=== PATIENT | female | born 1985 | race Caucasian/White ===

== ENCOUNTER → 2016-08-02 | Outpatient (REF) | payer BC, SELFPAY ==
[~2016-08-02] MED LIST: ACET30TAB PO; IBUP600T26 PO; ONDA1TAB15 PO
== END ==
LOC: M SFHCLERA 15:22
PROVIDERS: ATTEND Nurse Practitioner Family
DX: R19.7 Diarrhea, unspecified (principal)

== ENCOUNTER → 2016-08-19 | Outpatient (REF) | payer OTHER ==
[2016-08-19 20:28] LABS: MEAN CORPUSCULAR HEMOGLOBIN 30.9 pg (27.0-33.0); MEAN CORPUSCULAR HGB CONC 34.4 g/dl (32.0-36.5); MEAN CORPUSCULAR VOLUME 89.8 fl (80.0-96.0); RED CELL DISTRIBUTION WIDTH 12.4 % (11.5-14.5); WHITE BLOOD COUNT 10.1 K/mm3 (4.0-10.0)
[2016-08-19 20:43] LABS: ALBUMIN 3.9 GM/DL (3.2-5.2); ALKALINE PHOSPHATASE 44 U/L (45-117); ALT/SGPT 19 U/L (12-78); ANION GAP 8 MEQ/L (8-16); AST/SGOT 9 U/L (15-37); BILIRUBIN,TOTAL 0.3 MG/DL (0.2-1.0); BLOOD UREA NITROGEN 14 MG/DL (7-18); CALCIUM LEVEL 8.7 MG/DL (8.5-10.1); CARBON DIOXIDE LEVEL 27 MEQ/L (21-32); CHLORIDE LEVEL 102 MEQ/L (98-107); CREATININE FOR GFR 0.61 MG/DL (0.55-1.02); GLOMERULAR FILTRATION RATE > 60.0 (>60); GLUCOSE, FASTING 85 MG/DL (70-105); POTASSIUM SERUM 4.1 MEQ/L (3.5-5.1); SODIUM LEVEL 137 MEQ/L (136-145); TOTAL PROTEIN 6.9 GM/DL (6.4-8.2)
== END ==
LOC: M SFHCLERA 17:53
PROVIDERS: ATTEND Family Medicine
DX: A09 Infectious gastroenteritis and colitis, unspecified (principal)

== ENCOUNTER → 2016-10-07 | Outpatient (CLI) | payer OTHER ==
[~2016-10-07] MED LIST changes: +IBUP-1022 PO; -IBUP600T26 PO; +META0.52 PO; -ONDA1TAB15 PO; +ONDA4TAB5 PO; +PREN200C PO
[2016-10-09 00:08] LABS: ENDOMYSIAL ABY IgA Negative (Negative); TISSUE TRANSGLUTAMINASE IgG <2 U/mL (0-5)
== END ==
LOC: M LAB 10:37
PROVIDERS: ATTEND Internal Medicine Gastroenterology
DX: R19.7 Diarrhea, unspecified (principal)

== ENCOUNTER → 2016-10-08 | Outpatient (REF) | payer OTHER | LOC: M LAB REF 16:25 | PROVIDERS: ATTEND Internal Medicine Gastroenterology | DX: R19.7 Diarrhea, unspecified (principal) ==

== ENCOUNTER → 2016-10-11 | Outpatient (REF) | payer OTHER | LOC: M SFHCWAGY 10:20 | PROVIDERS: ATTEND Nurse Practitioner Women's Health | DX: Z12.4 Encounter for screening for malignant neoplasm of cervix (principal) ==

== ENCOUNTER 2016-11-05 13:07 | Emergency (ER) | payer OTHER ==
[~2016-11-05] VITALS: Ht 149.9 cm; Wt 53.6 kg
[~2016-11-05 13:07] MED LIST changes: -META0.52 PO; -PREN200C PO
[2016-11-05] MEDS ORDERED: PREN200C PO (13:31)
[2016-11-05] MEDS ORDERED: META0.52 PO (13:31)
[2016-11-05] MEDS ORDERED: NS 1,000 ML IV ONE (15:30)
[2016-11-05 16:05] LABS: BASO % 0.5 % (0.0-1.0); EOS # 0.2 K/mm3 (0.0-0.50); EOS % 1.8 % (0.0-3.0); LARGE UNSTAINED CELL # 0.1 K/mm3 (0.0-0.4); LARGE UNSTAINED CELL % 1.3 % (0.0-4.0); LYMPH # 2.2 K/mm3 (1.5-6.5); MEAN CORPUSCULAR HEMOGLOBIN 30.5 pg (27.0-33.0); MEAN CORPUSCULAR HGB CONC 34.8 g/dl (32.0-36.5); MEAN CORPUSCULAR VOLUME 87.7 fl (80.0-96.0); MONO # 0.4 K/mm3 (0.0-0.8); MONO % 4.3 % (0.0-5.0); NEUTROPHILS # 6.8 K/mm3 (1.8-7.7); NEUTROPHILS % 70.3 % (36.0-66.0); PLATELET COUNT, AUTOMATED 298 k/mm3 (150-450); RED CELL DISTRIBUTION WIDTH 12.4 % (11.5-14.5); WHITE BLOOD COUNT 9.7 K/mm3 (4.0-10.0)
[2016-11-05 16:49] LABS: ALBUMIN/GLOBULIN RATIO 1.14 (1.00-1.93); ALKALINE PHOSPHATASE 48 U/L (45-117); ALT/SGPT 16 U/L (12-78); ANION GAP 8 MEQ/L (8-16); AST/SGOT 8 U/L (15-37); BILIRUBIN,TOTAL 0.4 MG/DL (0.2-1.0); BLOOD UREA NITROGEN 9 MG/DL (7-18); CALCIUM LEVEL 9.1 MG/DL (8.5-10.1); CARBON DIOXIDE LEVEL 25 MEQ/L (21-32); CHLORIDE LEVEL 107 MEQ/L (98-107); CREATININE FOR GFR 0.64 MG/DL (0.55-1.02); GLOMERULAR FILTRATION RATE > 60.0 (>60); GLUCOSE, FASTING 94 MG/DL (70-105); HCG, SERUM QUANTITATIVE 4902 MIU/ML; SODIUM LEVEL 140 MEQ/L (136-145); TOTAL PROTEIN 7.5 GM/DL (6.4-8.2)
[2016-11-05] MEDS ORDERED: RHOGAM 300 MCG (1500 IU) INJ (J2790) IM SCH (18:00)
--- NOTE | 2016-11-05 19:01 | REP ---
1ST TRIMESTER ULTRASOUND: Real-time sonographic evaluation of the pelvis is performed utilizing transabdominal and endovaginal technique. The uterus measures 8.7 x 4.4 x 5.7 cm. There appears to be an intrauterine gestational sac present, this appear to contain a yolk sac. The mean sac diameter is 5 mm. This would correspond to an estimated gestational age of 5 weeks 2 days. No definite pole is seen. The right ovary measures 4.7 x 2.7 x 3.3 cm. Two small cystic structures are seen in the right ovary 2.2 x 2.1 x 1.6 cm and 1.6 x 2.2 x 1.7 cm. Left ovary measures 2.3 x 1.5 x 1.6 cm. A small internal cystic structure measures 1.4 x 1.2 x 0.9 cm. There is blood flow seen in each ovary with duplex Doppler evaluation, with no torsion, RI of each ovary is 0.6. There is no other evidence of adnexal mass or free fluid. IMPRESSION: There is a somewhat septate appearance to the uterus with an appearing gestational sac seen in the right horn of the uterus. This appears to contain a probable yolk sac but no pole. Estimated gestational age would be 5 weeks 2 days. This may represent a viable early intrauterine . Recommend followup ultrasound in 10-14 days to document viability. There are small cystic structures in each ovary without torsion. No free fluid. Signed by Abram Willis MD 11/08/2016 09:01 A
[2016-11-05 20:31] VITALS: BP 126/74
== END 2016-11-05 20:52 | disposition home or self-care (01) ==
LOC: M ED 13:07
DX: O20.9 Hemorrhage in early pregnancy, unspecified (principal); Z3A.01 Less than 8 weeks gestation of pregnancy
CPT/HCPCS: 76801; 76817; 80053; 81001; 84702; 85025; 86850; 86900; 86901; 87086; 87210; 87491; 87591; 90471; 93976; 99284; J2790

== ENCOUNTER → 2016-11-08 | Outpatient (CLI) | payer OTHER ==
[~2016-11-08] MED LIST changes: +META0.52 PO; +PREN200C PO
== END ==
LOC: M LAB 11:59
PROVIDERS: ATTEND Obstetrics & Gynecology
DX: O20.0 Threatened abortion (principal)

== ENCOUNTER → 2016-12-15 | Outpatient (CLI) | payer OTHER ==
[2016-12-15 20:38] LABS: BASO % 0.4 % (0.0-1.0); EOS # 0.2 10^3/uL (0.0-0.50); EOS % 1.5 % (0.0-3.0); IMMATURE GRANULOCYTE % 0.4 % (0-0); LYMPH # 3.3 10^3/uL (1.5-6.5); LYMPH % 31.1 % (24.0-44.0); MEAN CORPUSCULAR HEMOGLOBIN 30.6 pg (27.0-33.0); MEAN CORPUSCULAR HGB CONC 34.6 g/dl (32.0-36.5); MEAN CORPUSCULAR VOLUME 88.4 fl (80.0-96.0); MONO # 0.8 10^3/uL (0.0-0.8); MONO % 7.3 % (0.0-5.0); NEUTROPHILS # 6.3 10^3/uL (1.8-7.7); NEUTROPHILS % 59.3 % (36.0-66.0); PLATELET COUNT, AUTOMATED 316 10^3/uL (150-450); RED CELL DISTRIBUTION WIDTH 12.6 % (11.5-14.5)
[2016-12-15 21:11] LABS: ADD MORPHOLOGY? NO
[2016-12-16 10:24] LABS: WHITE BLOOD COUNT 10.6 10^3/uL (4.0-10.0)
[2016-12-17 09:52] LABS: HBsAg Prenatal NEGATIVE (NEGATIVE)
== END ==
LOC: M LRY 16:11
PROVIDERS: ATTEND Advanced Practice Midwife
DX: Z34.81 Encounter for supervision of other normal pregnancy, first trimester (principal)

== ENCOUNTER → 2017-02-14 | Outpatient (CLI) | payer OTHER ==
--- NOTE | 2017-02-14 17:45 | REP ---
Obstetric sonography: History: Supervision of , for anatomy. Findings: Scanning through the gravid uterus demonstrates a viable single intrauterine gestation in a cephalic lie. motion is observed and heart rate is recorded at 141 beats per minute. A right lateral grade 0 placenta is seen without evidence of previa or abruption. Amniotic fluid is subjectively normal. Closed cervical length is 3.9 cm. No extrauterine abnormalities observed. No anomaly is seen. The following anatomic structures are identified and felt to be sonographically unremarkable: cranium, choroid plexus, cavum, cerebellum and posterior fossa, face and profile, lungs, four-chamber heart with left and right ventricular outflow tract views, diaphragm, left-sided stomach, abdominal wall cord insertion, three-vessel umbilical cord, kidneys and bladder, spine, upper and lower extremities. Biometry chart: BPD 4.7 cm = 20 weeks 0 days HC 16.6 cm = 19 weeks 2 days AC 13.9 cm = 19 weeks 2 days FL 2.9 cm = 18 weeks 6 days HL 3.0 cm = 20 weeks 0 days HC/AC ratio normal 1.2. Cephalic index normal 0.79. Estimated weight 277 grams 0 pounds 9 ounces, 28th percentile for 19 weeks 5 days. Impression: Viable single intrauterine gestation at 19 weeks 4 days by today's composite sonographic criteria. Expected gestational age estimate 19 weeks 5 days. LOUANN by prior sonography July 06, 2017. No anomaly is seen. Signed by Neo Cruz MD 02/14/2017 08:30 P
== END ==
LOC: M RAD 15:31
PROVIDERS: ATTEND Advanced Practice Midwife
DX: Z36.2 Encounter for other antenatal screening follow-up (principal)

== ENCOUNTER → 2017-04-07 | Outpatient (CLI) | payer OTHER ==
[2017-04-07 18:54] LABS: BASO % 0.3 % (0.0-1.0); EOS # 0.3 10^3/uL (0.0-0.50); HEMATOCRIT 34.2 % (36.0-47.0); HEMOGLOBIN 11.7 g/dl (12.0-16.0); IMMATURE GRANULOCYTE % 0.4 % (0-0); LYMPH # 2.4 10^3/uL (1.5-6.5); MEAN CORPUSCULAR HEMOGLOBIN 30.2 pg (27.0-33.0); MEAN CORPUSCULAR HGB CONC 34.2 g/dl (32.0-36.5); MEAN CORPUSCULAR VOLUME 88.4 fl (80.0-96.0); MONO # 0.6 10^3/uL (0.0-0.8); MONO % 5.8 % (0.0-5.0); NEUTROPHILS # 6.7 10^3/uL (1.8-7.7); NEUTROPHILS % 66.5 % (36.0-66.0); PLATELET COUNT, AUTOMATED 308 10^3/uL (150-450); RED BLOOD COUNT 3.87 10^6/uL (4.00-5.40); RED CELL DISTRIBUTION WIDTH 12.7 % (11.5-14.5); WHITE BLOOD COUNT 10.1 10^3/uL (4.0-10.0)
[2017-04-07 19:16] LABS: GLUCOSE CHALLENGE TEST 1 HOUR 172 MG/DL (LESS THAN 140)
[2017-04-08 09:10] LABS: TYPE AND SCREEN 1 1
== END ==
LOC: M LRY 15:31
DX: Z34.83 Encounter for supervision of other normal pregnancy, third trimester (principal); Z36.89 Encounter for other specified antenatal screening
CPT/HCPCS: 82950

== ENCOUNTER → 2017-04-14 | Outpatient (CLI) | payer OTHER ==
[2017-04-14 09:18] LABS: GLUCOSE, FASTING 84 MG/DL (LESS THAN 95)
[2017-04-14 10:09] LABS: 1 HR GLUCOSE 161 MG/DL (LESS THAN 180)
[2017-04-14 11:11] LABS: 2 HR GLUCOSE 138 MG/DL (LESS THAN 155)
[2017-04-14 12:28] LABS: 3 HR GLUCOSE 95 MG/DL (LESS THAN 140)
== END ==
LOC: M LAB 08:09
DX: Z34.83 Encounter for supervision of other normal pregnancy, third trimester (principal); Z3A.00 Weeks of gestation of pregnancy not specified
CPT/HCPCS: 82951

== ENCOUNTER 2017-05-04 04:27 | Outpatient (CLI) | payer OTHER ==
[2017-05-04] MEDS ORDERED: CALCIUM GLUCONATE 1,000 MG in D5W MINI-BAG PLUS 100 ML IV (05:45)
[2017-05-04 06:02] LABS: HEMATOCRIT 32.2 % (36.0-47.0); HEMOGLOBIN 11.3 g/dl (12.0-16.0); MEAN CORPUSCULAR HEMOGLOBIN 30.7 pg (27.0-33.0); MEAN CORPUSCULAR HGB CONC 35.1 g/dl (32.0-36.5); MEAN CORPUSCULAR VOLUME 87.5 fl (80.0-96.0); PLATELET COUNT, AUTOMATED 274 10^3/uL (150-450); RED BLOOD COUNT 3.68 10^6/uL (4.00-5.40); RED CELL DISTRIBUTION WIDTH 12.4 % (11.5-14.5); WHITE BLOOD COUNT 10.1 10^3/uL (4.0-10.0)
[2017-05-04] MEDS: BETAMETHASONE SOLUSPAN 6MG/ML INJ 5ML (J0702) IM (06:08)
[2017-05-04] MEDS: AZITHROMYCIN 250 MG TAB PO (06:08)
[2017-05-04] MEDS: LACTATED RINGER'S 1000 ML IV (06:08)
[2017-05-04] MEDS: MAG Sulf (L&D) 4 GM/100 ML 4 GM in APPROPRIATE DILUENT 1 EA IV (06:18)
[2017-05-04] MEDS: MAG Sulf (OBGYN) 20GM/500ML 20,000 MG in APPROPRIATE DILUENT 1 EA IV (06:35)
[2017-05-04] MEDS: CEFAZOLIN SOD 1 GM in APPROPRIATE DILUENT 1 EA IV (06:48)
[2017-05-04] MEDS: LR 1,000 ML IV (06:58)
[2017-05-04 10:18] LABS: CHLAMYDIA DNA AMPLIFICATION NEGATIVE (NEGATIVE); GC DNA AMPLIFICATION NEGATIVE (NEGATIVE)
== END 2017-05-04 13:30 | disposition other institution (70) ==
LOC: M LDO 04:27
DX: O42.913 Preterm premature rupture of membranes, unspecified as to length of time between rupture and onset of labor, third trimester (principal); O32.1XX3 Maternal care for breech presentation, fetus 3; Z3A.31 31 weeks gestation of pregnancy
CPT/HCPCS: J3475

== ENCOUNTER → 2017-10-12 | Outpatient (REF) | payer OTHER | LOC: M LAB REF 13:19 | DX: Z12.4 Encounter for screening for malignant neoplasm of cervix (principal) ==

== ENCOUNTER 2018-08-22 13:52 | Emergency (ER) | payer OTHER ==
[~2018-08-22] VITALS: Ht 149.9 cm; Wt 52.1 kg
[~2018-08-22 13:52] MED LIST changes: -FLOM0.4C39 PO; -KETO10TAB PO; -ZOFR4TAB16 PO
[2018-08-22 14:38] LABS: HEMATOCRIT 39.7 % (36.0-47.0); HEMOGLOBIN 13.5 g/dl (12.0-15.5); MEAN CORPUSCULAR HEMOGLOBIN 30.5 pg (27.0-33.0); MEAN CORPUSCULAR VOLUME 89.8 fl (80.0-96.0); PLATELET COUNT, AUTOMATED 254 10^3/uL (150-450); RED BLOOD COUNT 4.42 10^6/uL (4.00-5.40); WHITE BLOOD COUNT 9.2 10^3/uL (4.0-10.0)
[2018-08-22] MEDS ORDERED: KETOROLAC TROMETHAMINE 10 MG TAB PO ONE (15:00)
[2018-08-22 15:10] LABS: BLOOD UREA NITROGEN 11 MG/DL (7-18); CALCIUM LEVEL 8.9 MG/DL (8.5-10.1); CARBON DIOXIDE LEVEL 27 MEQ/L (21-32); CHLORIDE LEVEL 104 MEQ/L (98-107); CREATININE FOR GFR 0.64 MG/DL (0.55-1.30); GLOMERULAR FILTRATION RATE > 60.0 (>60); GLUCOSE, FASTING 96 MG/DL (70-100); POTASSIUM SERUM 3.7 MEQ/L (3.5-5.1); SODIUM LEVEL 137 MEQ/L (136-145)
--- NOTE | 2018-08-22 15:48 | REP ---
CT ABDOMEN AND PELVIS WITHOUT CONTRAST: CT abdomen and pelvis performed without oral or IV contrast. Sagittal and coronal reconstruction images are performed. Visualized lung bases are clear. The liver, spleen, adrenals, pancreas are grossly unremarkable. The right kidney is grossly unremarkable without evidence of hydronephrosis or nephrolithiasis. There are a few subcentimeter calculi in the left renal collecting system. There is moderate left hydroureteronephrosis caused by a 3 mm calculus at the left ureterovesical junction. The urinary bladder is relatively collapsed and not well evaluated. There is no gross adenopathy. No free air or free fluid is seen. No gross pelvic mass is seen. IMPRESSION: There is a 3 mm calculus at the left ureterovesical junction causing moderate left hydroureteronephrosis. A few left intrarenal calculi are seen. Electronically Signed by Abram Willis MD 08/24/2018 08:40 A
[2018-08-22] MEDS ORDERED: KETO10TAB PO (15:51)
[2018-08-22] MEDS ORDERED: FLOM0.4C39 PO (15:51)
[2018-08-22] MEDS ORDERED: ZOFR4TAB16 PO (15:52)
[2018-08-22] MEDS ORDERED: ONDANSETRON 4 MG ORAL DISINTEGRATING TAB (Q0162 PER 1MG) PO ONE (16:00)
[2018-08-22 16:17] VITALS: BP 113/71
== END 2018-08-22 16:25 | disposition home or self-care (01) ==
LOC: M ED 13:52
DX: N20.1 Calculus of ureter (principal); R11.0 Nausea; Z87.442 Personal history of urinary calculi; Z88.2 Allergy status to sulfonamides
CPT/HCPCS: 36415; 74176; 80048; 81001; 84702; 85027; 99283; Q0162

== ENCOUNTER → 2018-08-22 | Outpatient (REF) | payer OTHER ==
[~2018-08-22] MED LIST changes: +ACET-716 PO; -ACET30TAB PO; +FLOM0.4C39 PO; +KETO10TAB PO; +ZOFR4TAB16 PO
== END ==
LOC: M SFHCLERA 13:11
PROVIDERS: ATTEND Physician Assistant
DX: R10.9 Unspecified abdominal pain (principal)

== ENCOUNTER → 2018-10-01 | Outpatient (REF) | payer OTHER ==
[~2018-10-01] MED LIST changes: +FLOM0.4C39 PO; +KETO10TAB PO; +ZOFR4TAB16 PO
[2018-10-01 21:10] LABS: CHLAMYDIA DNA AMPLIFICATION NEGATIVE (NEGATIVE); GC DNA AMPLIFICATION NEGATIVE (NEGATIVE)
== END ==
LOC: M SFHCLERA 16:28
PROVIDERS: ATTEND Nurse Practitioner Family
DX: R35.0 Frequency of micturition (principal)

== ENCOUNTER → 2018-10-19 | Outpatient (CLI) | payer OTHER | LOC: M SMT 13:41 | PROVIDERS: ATTEND Advanced Practice Midwife | DX: O20.0 Threatened abortion (principal) ==

== ENCOUNTER → 2018-10-23 | Outpatient (CLI) | payer OTHER | LOC: M LRY 11:17 | PROVIDERS: ATTEND Advanced Practice Midwife | DX: O20.0 Threatened abortion (principal); Z3A.00 Weeks of gestation of pregnancy not specified ==

== ENCOUNTER → 2018-10-24 | Outpatient (CLI) | payer OTHER ==
[~2018-10-24] MED LIST changes: +ONDA-83 PO; -ONDA4TAB5 PO
== END ==
LOC: M LAB 15:55
PROVIDERS: ATTEND Specialist
DX: O02.1 Missed abortion (principal); Z3A.00 Weeks of gestation of pregnancy not specified
CPT/HCPCS: 36415; 86850; 86901; J2790

== ENCOUNTER → 2018-10-30 | Outpatient (CLI) | payer OTHER ==
[~2018-10-30] MED LIST changes: -ONDA-83 PO; +ONDA4TAB5 PO
== END ==
LOC: M SMT 09:11
PROVIDERS: ATTEND Obstetrics & Gynecology
DX: O02.1 Missed abortion (principal)

== ENCOUNTER → 2018-11-06 | Outpatient (CLI) | payer OTHER | LOC: M SMT 11:27 | PROVIDERS: ATTEND Obstetrics & Gynecology | DX: O02.1 Missed abortion (principal); Z3A.00 Weeks of gestation of pregnancy not specified ==

== ENCOUNTER → 2018-11-17 | Outpatient (CLI) | payer OTHER ==
[~2018-11-17] MED LIST changes: +ONDA-83 PO; -ONDA4TAB5 PO
[2018-11-17 18:08] LABS: FOLLICLE STIMULATING HORMONE 5.7 mIU/mL; FREE T4 0.93 NG/DL (0.76-1.46); LUTEINIZING HORMONE 3.6 mIU/mL; THYROID STIMULATING HORMONE 2.83 uIU/ML (0.358-3.740)
[2018-11-24 08:06] LABS: ANTI DS-DNA AB <1:10 titer (.); ANTI THROMBIN 3 FUNCT ACTIVITY 124 % (75-135); CARDIOLIPIN IGA ANTIBODY <9 APL U/mL (0-11); CARDIOLIPIN IGG ANTIBODY <9 GPL U/mL (0-14); CARDIOLIPIN IGM ANTIBODY <9 MPL U/mL (0-12); PROTEIN C FUNCTIONAL ACTIVITY 129 % (73-180); PROTEIN S FUNCTIONAL ACTIVITY 78 % (63-140); SSA SJOGRENS A 0.2 AI (0.0-0.9); SSB SJOGRENS B <0.2 AI (0.0-0.9)
[2018-12-01 11:14] LABS: DRVV SCREEN 38.7 SEC
== END ==
LOC: M SMT 15:08
PROVIDERS: ATTEND Obstetrics & Gynecology
DX: O02.1 Missed abortion (principal); Z3A.00 Weeks of gestation of pregnancy not specified

== ENCOUNTER → 2019-10-23 | Outpatient (REF) | payer OTHER | LOC: M SFHCWAGY 10:53 | PROVIDERS: ATTEND Advanced Practice Midwife | DX: Z12.4 Encounter for screening for malignant neoplasm of cervix (principal) ==

== ENCOUNTER → 2020-01-25 | Outpatient (REF) | payer OTHER ==
[2020-01-25 18:08] LABS: HEMATOCRIT 33.2 % (36.0-47.0); HEMOGLOBIN 11.5 g/dl (12.0-15.5); MEAN CORPUSCULAR HEMOGLOBIN 30.6 pg (27.0-33.0); MEAN CORPUSCULAR HGB CONC 34.6 g/dl (32.0-36.5); MEAN CORPUSCULAR VOLUME 88.3 fl (80.0-96.0); PLATELET COUNT, AUTOMATED 268 10^3/uL (150-450); RED BLOOD COUNT 3.76 10^6/uL (4.00-5.40); WHITE BLOOD COUNT 10.4 10^3/uL (4.0-10.0)
[2020-01-25 19:24] LABS: HEPATITIS C VIRUS ABY INDEX 0.1 INDEX (<0.8); HIV 1&2 SCREEN CENTAUR NEGATIVE (NEGATIVE)
== END ==
LOC: M PLALAB 14:58
PROVIDERS: ATTEND Obstetrics & Gynecology
DX: O34.211 Maternal care for low transverse scar from previous cesarean delivery (principal)

== ENCOUNTER → 2020-02-11 | Outpatient (CLI) | payer OTHER ==
--- NOTE | 2020-02-11 12:08 | REP ---
INDICATION: ANATOMY COMPARISON: None. TECHNIQUE: Transabdominal obstetrical ultrasound with color Doppler evaluation. FINDINGS: Examination demonstrates a single live intrauterine in transverse presentation. motion is identified by technologist. Placenta is noted posterior and grade 1 without evidence for placenta previa or abruption. A 2.6 x 2.8 x 1.4 cm hypoechoic area within the placenta may represent venous Tavares. Amniotic fluid volume is normal. Cervix measures 3.5 cm in length and appears closed. Gestational age by LMP 18 weeks 0 days with LOUANN 07/14/2020. Gestational age by current measurements 18 weeks 2 days with LOUANN 07/12/2020. FHR equals 146 beats per minute. BPD: 4.3 cm 19 weeks 0 days HC: 15.2 cm 18 weeks 2 days AC: 12.3 cm 18 weeks 0 days FL: 2.6 cm 18 weeks 0 days HL: 2.5 cm 18 weeks 0 days HC/AC: 1.24 Estimated weight 220 grams (46thpercentile). Anatomical assessment demonstrates normal structures including cranium, choroid plexus, cavum, cerebellum/posterior fossa, diaphragm, stomach, cord insertion/three-vessel cord, kidneys/bladder, spine, and extremities. Limited evaluation of the facial profile, four-chamber heart and ventricular outflow tracts. IMPRESSION: 1. Single live intrauterine in transverse lie demonstrating appropriate estimated weight and growth. Anatomical limitations as noted above may warrant re-evaluation and follow-up. 2. Suspected 2.8 cm venous Tavares in the placenta. <Electronically signed by Joseph Cortes > 02/11/20 [id number]
== END ==
LOC: M WHC 08:37
PROVIDERS: ATTEND Obstetrics & Gynecology
DX: Z36.89 Encounter for other specified antenatal screening (principal); Z3A.18 18 weeks gestation of pregnancy; O32.2XX0 Maternal care for transverse and oblique lie, not applicable or unspecified

== ENCOUNTER → 2020-03-26 | Outpatient (REF) | payer OTHER | LOC: M PLALAB 15:52 | PROVIDERS: ATTEND Obstetrics & Gynecology | DX: Z3A.24 24 weeks gestation of pregnancy (principal); Z53.9 Procedure and treatment not carried out, unspecified reason ==

== ENCOUNTER → 2020-04-03 | Outpatient (CLI) | payer OTHER ==
--- NOTE | 2020-04-04 06:20 | REP ---
INDICATION: F/U ANATOMY COMPARISON: 03/03/2021 TECHNIQUE: Transabdominal obstetrical ultrasound with color Doppler evaluation. FINDINGS: Examination demonstrates a single live intrauterine in breech presentation. motion is identified by technologist. Placenta is noted posterior and grade 1 without evidence for placenta previa or abruption. Amniotic fluid volume is normal. Cervix measures 4.2 cm in length and appears closed. Gestational age by LMP 25 weeks 3 days with LOUANN 07/14/2020. Gestational age by current measurements 25 weeks 3 days with LOUANN 07/14/2020. FHR equals 144 beats per minute. Estimated weight 802 grams (38thpercentile). Anatomical assessment demonstrates normal structures including cranium, facial features, four-chamber heart/ventricular outflow tracts, diaphragm, stomach/abdominal wall, kidneys/bladder, and three-vessel cord IMPRESSION: Single live intrauterine demonstrating appropriate interval growth. In conjunction with prior examination anatomical assessment is complete and normal. <Electronically signed by Joseph Cortes > 04/04/20 [id number]
== END ==
LOC: M WHC 08:29
PROVIDERS: ATTEND Obstetrics & Gynecology
DX: Z34.92 Encounter for supervision of normal pregnancy, unspecified, second trimester (principal); Z3A.25 25 weeks gestation of pregnancy

== ENCOUNTER → 2020-04-15 | Outpatient (CLI) | payer OTHER ==
[2020-04-15 17:03] LABS: MEAN CORPUSCULAR HEMOGLOBIN 30.8 pg (27.0-33.0); MEAN CORPUSCULAR HGB CONC 33.3 g/dl (32.0-36.5); MEAN CORPUSCULAR VOLUME 92.4 fl (80.0-96.0); PLATELET COUNT, AUTOMATED 257 10^3/uL (150-450); RED BLOOD COUNT 3.57 10^6/uL (4.00-5.40); WHITE BLOOD COUNT 10.4 10^3/uL (4.0-10.0)
== END ==
LOC: M LAB 15:03
PROVIDERS: ATTEND Obstetrics & Gynecology
DX: Z34.82 Encounter for supervision of other normal pregnancy, second trimester (principal); Z3A.24 24 weeks gestation of pregnancy
CPT/HCPCS: 36415; 82950; 85027; 86850; 86900; 86901; J2790

== ENCOUNTER → 2020-04-16 | Outpatient (REF) | payer OTHER | LOC: M PLALAB 09:13 | PROVIDERS: ATTEND Obstetrics & Gynecology | DX: R73.09 Other abnormal glucose (principal) ==

== ENCOUNTER → 2020-04-30 | Outpatient (CLI) | payer OTHER | LOC: M LAB 08:07 | PROVIDERS: ATTEND Obstetrics & Gynecology | DX: R73.09 Other abnormal glucose (principal) ==

== ENCOUNTER → 2020-05-20 | Outpatient (REF) | payer OTHER | LOC: M SFHCWAGY 14:41 | PROVIDERS: ATTEND Advanced Practice Midwife | DX: R30.0 Dysuria (principal) ==

== ENCOUNTER → 2020-06-05 | Outpatient (REF) | payer OTHER | LOC: M SFHCWAGY 13:34 | PROVIDERS: ATTEND Advanced Practice Midwife | DX: O34.211 Maternal care for low transverse scar from previous cesarean delivery (principal) ==

== ENCOUNTER → 2020-07-07 | Outpatient (CLI) | payer OTHER | LOC: M LABSMTC 09:49 | PROVIDERS: ATTEND Specialist | DX: Z20.822 Contact with and (suspected) exposure to COVID-19 (principal) ==

== ENCOUNTER → 2020-07-09 | Outpatient (REF) | payer OTHER | LOC: M SFHCWAGY 09:46 | PROVIDERS: ATTEND Obstetrics & Gynecology | DX: Z36.89 Encounter for other specified antenatal screening (principal); Z3A.39 39 weeks gestation of pregnancy ==

== ENCOUNTER → 2020-07-14 | Outpatient (CLI) | payer OTHER | LOC: M LABSMTC 09:50 | PROVIDERS: ATTEND Specialist | DX: Z01.818 Encounter for other preprocedural examination (principal); Z20.822 Contact with and (suspected) exposure to COVID-19 ==

== ENCOUNTER 2020-07-17 02:20 | Inpatient (IN) | payer OTHER ==
[~2020-07-17] VITALS: Ht 149.9 cm; Wt 65.1 kg
[2020-07-17] VITALS (44 sets, daily range): BP systolic 103–165; BP diastolic 56–96
[2020-07-17] MEDS ORDERED: ACET325C5 PO (02:43)
[2020-07-17] MEDS ORDERED: CALC500C15 PO (02:44)
[2020-07-17] MEDS ORDERED: LACTATED RINGER'S 1000 ML IV STA (03:09)
[2020-07-17] MEDS ORDERED: OXYTOCIN DRIP 30 UNITS in IV 1 EA IV PRN (03:10)
[2020-07-17] MEDS ORDERED: LIDOCAINE 1% MDV 20ML VIAL INFIL PRN (03:10)
[2020-07-17] MEDS ORDERED: METHYLERGONOVINE MALEATE 0.2 MG/ML VIAL (J2210) IM PRN (03:10)
[2020-07-17 03:33] LABS: HEMATOCRIT 39.3 % (36.0-47.0); HEMOGLOBIN 13.3 g/dl (12.0-15.5); MEAN CORPUSCULAR HEMOGLOBIN 30.5 pg (27.0-33.0); MEAN CORPUSCULAR HGB CONC 33.8 g/dl (32.0-36.5); MEAN CORPUSCULAR VOLUME 90.1 fl (80.0-96.0); PLATELET COUNT, AUTOMATED 258 10^3/uL (150-450); RED BLOOD COUNT 4.36 10^6/uL (4.00-5.40); WHITE BLOOD COUNT 13.9 10^3/uL (4.0-10.0)
[2020-07-17] MEDS ORDERED: FENTANYL 2MCG/ML ROPIVACAINE 0.2% IN 0.9% NACL 100ML IVBAG As Ordered ONE (03:49)
[2020-07-17 03:55] LABS: ALT/SGPT 12 U/L (12-78); BILIRUBIN,TOTAL 0.5 MG/DL (0.2-1.0); CREATININE FOR GFR 0.48 MG/DL (0.55-1.30); GLOMERULAR FILTRATION RATE > 60.0 (>60); LDH LACTATE DEHYDROGENASE 194 U/L (84-246); URIC ACID 3.9 MG/DL (2.6-6.0)
[2020-07-17] MEDS: LR 1,000 ML IV SCH ×3 (04:15→11:11)
[2020-07-17] MEDS ORDERED: ePHEDrine SULFATE 25 MG/5 ML(5MG/ML) SYRINGE IV PRN (04:40)
[2020-07-17] MEDS ORDERED: REFRIGERATOR IV KEYS XX PRN (04:40)
[2020-07-17] MEDS ORDERED: ONDANSETRON 4MG/2ML VIAL IV PRN ×2 (04:40→16:55)
[2020-07-17] MEDS ORDERED: EPIDURAL COMMENT XX SCH (04:40)
[2020-07-17] MEDS ORDERED: NALOXONE INJ 0.4MG/1ML VIAL (J2310 PER 1MG) IV PRN (04:40)
[2020-07-17] MEDS ORDERED: diphenhydrAMINE 50MG/ML VIAL (J1200) IV PRN (04:40)
[2020-07-17] MEDS ORDERED: EPIDURAL/PCA KEYS XX PRN (04:40)
[2020-07-17] MEDS ORDERED: LACTATED RINGER'S 1000 ML IV PRN (04:40)
[2020-07-17] MEDS: FENTANYL/ROPIVACAINE/NACL BAG 100 ML EPIDURAL SCH ×2 (04:41→14:22)
--- NOTE | 2020-07-17 06:38 | HPEPDOC ---
Obstetrical History & Physical General Date of Admission Jul 17, 2020 at 03:04 History of Present Illness 34 yo female at 40 3/7 weeks gestation by LMP c/w 12 week ultrasound (EDC=07/14/2020) presents with regular contractions ever 5 minutes for hte last several hours. THey increased in intensity. no vaginal bleeding .She has had a prior section; she plans TOLAC. Chief Complaint: Contractions, term Information Provided By: Patient Age: 34 : 4 Term: 0 Pre-term: 1 Abortions: 2 Livin Care Care: Good Care Dating Final EDC: Jul 14, 2020 Final EDC by: LMP, 1st trimester (US) Antepartum Course Diagnos(e)s Prior section: Plans TOLAC Past Medical History Past Obstetrical History : Past Obstetrical History: Multigravida Past Medical History Medical History med hx: None surgical hx: D+C double inguinal hernia repair OB Hx: SAB x 2 31 weeks section PPROM, breech Family History Significant Family History: No pertinent family hx Social History Marital Status: Family situation: Spouse/partner home Psychosocial History: No pertinent psych hx Allergies Coded Allergies: Sulfa (Sulfonamide Antibiotics) (Verified Allergy, Intermediate, hives, 07/17/20) Medications Scheduled Docosahexanoic Acid ( Dha) 200 Mg Cap, 200 MG PO DAILY Miscellaneous Medications Acetaminophen (Tylenol) 325 Mg Capsule, 325 MG PO Calcium Carbonate (Antacid) 200 Mg Tab.chew, 500 MG PO Physical Examination Physical Examination GENERAL: Alert and oriented times three. BREAST: . ABDOMEN: Gravid and non-tender to touch. FETUS: Is vertex (VTX) by sterile vaginal examination (SVE), fetus is vertex (VTX) by Roberto. HEART RATE: Regular rate and rhythm. LUNGS: Clear to auscultation (CTA). EXTREMITIES: No edema. No clonus. Deep tendon reflexes (DTRs) + . Vital Signs/I&O Vital Signs Date Time Temp Pulse Resp B/P (MAP) Pulse Ox O2 Delivery O2 Flow Rate FiO2 07/17/20 05:35 75 18 141/84 (103) 07/17/20 04:46 98 07/17/20 02:46 98.1 I&O- Last 24 Hours up to 6 AM 07/17/20 06:00 Intake Total 1000 ml Balance 1000 ml Laboratory Data 24H LABS Laboratory Tests 2 07/17/20 03:06: Serology Scanned Report Hepatitis B Testing 07/17/20 03:21: Nucleated Red Blood Cells % (auto) 0.0, Glomerular Filtration Rate > 60.0, Uric Acid 3.9, Total Bilirubin 0.5, Aspartate Amino Transf (AST/SGOT) 15, Alanine Aminotransferase (ALT/SGPT) 12, Lactate Dehydrogenase 194 CBC/BMP Laboratory Tests 07/17/20 03:21 Pertinent Laboratoy Data Group B Streptococcus: Negative Vaginal Examination Dilation: 5 cm Effacement: 100% Station: -1 Cervical Consistency: Soft Cervical Position: Middle Presentation: Cephalic presentation Assessment Variability: Moderate Accelerations: Positive Decelerations: None Tocometer Contractions: Yes Frequency: regular Duration: greater than 60 seconds Strength: palpated as moderate Assessment/Plan Assessment Pt is a 34-year-old (G)4 para (P)0-1-2-1 at 40+3 weeks by LMP c/w 12- week ultrasound presents to Labor and Delivery in active labor. Pt Plans TOLAC. Plan Admit and orient. 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 Diet: liquid Group B Streptococcus (GBS) negative. Labs and intravenous (IV) per unit protocol. Anticipate normal spontaneous delivery (). C-S as appropriate. Risk of TOLAC previously discussed, including risk of uterine rupture MELINDA VILLALOBOS MD Jul 17, 2020 06:38
--- NOTE | 2020-07-17 06:39 | HPE ---
HISTORY AND PHYSICAL DATE OF ADMISSION: 07/17/2020 HISTORY OF PRESENT ILLNESS: Lorena is a 34-year-old 4 para 0-1-2-1 at 40-3/7 weeks' gestation with an estimated date of confinement (EDC) of 07/14/2020 by last menstrual period and confirmed by first trimester ultrasound. She presents to labor and delivery today with a report of uncomfortable contractions that initially started on Tuesday and have maintained anywhere between five and 10 minutes apart. She reports that the contractions are now every five minutes apart. She reports some mild bloody show, denies leakage of fluid, and the fetus has been active. Her care was initiated at [facility] in the first trimester. course was complicated by a history of a prior section at 31 weeks' gestation following premature rupture of membranes (PPROM) and breech presentation. She has utilized Radha progesterone injections throughout this and desires a trial of labor after . OBSTETRIC HISTORY: First : Spontaneous miscarriage. Second : May 09, 2017, 31 weeks' gestation, 3 pounds 3 ounces female section at [facility]. Third : Spontaneous miscarriage. OBSTETRIC LABORATORY: A negative; antibody screen negative. Syphilis negative. Gonorrhea and chlamydia negative. Hepatitis B negative, hepatitis C negative. Rubella immune. Gestational diabetic screening abnormal at 145. Three-hour glucose tolerance test: fasting 85, one hour 160, two hour 138 and three hour 79, and her GBS is negative. PAST MEDICAL HISTORY: Fibroid uterus. SURGERIES: Hernia repair, inguinal, as a child. Dilatation and curettage for miscarriage. section. Dilatation and curettage for miscarriage. FAMILY HISTORY: Heart disease, hypertension. SOCIAL HISTORY: The patient is single; however, her partner is at bedside and supportive. She is a nonsmoker. She denies alcohol and drug use. No history of any sexually transmitted infections, and she denies history of abuse; physical, sexual and emotional. ALLERGIES: SULFA, AVOCADO. CURRENT MEDICATIONS: vitamin. OBJECTIVE: Temperature 98.1, pulse 111, respirations 18, blood pressure 124/90. heart rate is 140 with moderate variability, positive accelerations, negative decelerations; contractions appear to be every 4-5 minutes and they do palpate moderate. Sterile vaginal exam: 5-6 cm dilated, 100% effaced, -2 station, mid position, positive show with the exam. Her abdomen is gravid; cephalic presentation with an estimated weight approximately 7.5-8 pounds. ASSESSMENT: Intrauterine at 40-3/7 weeks; heart rate category I; labor. PLAN: Admit the patient to labor and delivery. IV fluid bolus as the patient is requesting an epidural. Routine laboratories with the addition of a preeclamptic profile. Out of bed ad tammi. Clear liquid diet. Risks, benefits and alternatives related to trial of labor after section have been reviewed. All the patient's and her partner's questions have been answered. She does desire to proceed with trial of labor after section. May consider Pitocin augmentation if necessary. I do anticipate continued labor progress.
[2020-07-17] MEDS ORDERED: OXYTOCIN 30 UNITS IN 0.9% NaCl 500ML IV BAG (J2590) As Ordered ONE (13:19)
[2020-07-17] MEDS ORDERED: CALCIUM CARBONATE 500 MG CHEW U/D PO PRN (13:50)
[2020-07-17 16:40] LABS: CORD GAS ABE V -5.2; CORD GAS HCO3 V 21.3 MEQ/L; CORD GAS O2 SAT V 56.2 %; CORD GAS PCO2 V 44.6 mmHg; CORD GAS PH V 7.296 UNITS; CORD GAS PO2 V 23.7 mmHg; CORD GAS SBC V 19.1 MEQ/L; CORD GAS TCO2 V 22.6 MEQ/L
[2020-07-17] MEDS ORDERED: ACETAMINOPHEN TAB 650MG DOSE (2X325MG) PO PRN (16:55)
[2020-07-17] MEDS ORDERED: LIDOCAINE 1% MDV 20ML VIAL INFIL ONE (16:55)
[2020-07-17] MEDS ORDERED: METHYLERGONOVINE MALEATE 0.2 MG TAB PO PRN (16:55)
[2020-07-17] MEDS ORDERED: OXYTOCIN DRIP 30 UNITS in IV 1 EA IV ONE (16:55)
[2020-07-17] MEDS ORDERED: MEASLES,MUMPS,RUBELLA VACCINE INJ (MMR-II) (90707) SC SCH (16:55)
[2020-07-17] MEDS ORDERED: IBUPROFEN 600MG TAB PO PRN (16:55)
[2020-07-17] MEDS ORDERED: RHOGAM 300 MCG (1500 IU) INJ (J2790) IM SCH (16:55)
--- NOTE | 2020-07-17 16:59 | DNPDOC ---
[facility] Delivery Note Delivery Note DATE OF DELIVERY: July 17, 2020 PREDELIVERY DIAGNOSIS: 40-3/7 weeks' gestation and labor, trial of labor after (TOLAC). POST DELIVERY DIAGNOSIS: Delivered. PROCEDURE: Spontaneous vaginal delivery. EYEGLASS CUTTER: Dr. Melinda Villalobos MD ANESTHESIA: epidural. ESTIMATED BLOOD LOSS: 300 mL. FINDINGS: 8 pound 8 ounce male infant, Score 8/9, meconium noted at time of delivery. DELIVERY SUMMARY: Patient is a 34-year-old 4 now para 1122 who was admitted to labor and delivery for labor. She has had a prior section and desires TOLAC. She progressed without augmentation. She had AROM performed. After a 3 hour second stage of labor she had a spontaneous vaginal delivery of n 8 lb. 8 oz. male infant. No nuchal cord. Meconium noted after delivery of the head. Shoulders delivered with ease. Placenta delivered spontaneously and appeared intact. Stellate second degree laceration noted. Repair performed with 2-O Chromic under local anesthesia in the usual fashion. Sponge and needle counts correct. MELINDA VILLALOBOS MD Jul 17, 2020 16:59
[2020-07-17] MEDS: IBUPROFEN 800 MG TAB PO PRN (20:03)
[2020-07-17] MEDS: DIBUCAINE 1% OINTMENT 30GM TOP PRN (20:04)
[2020-07-17] MEDS: DOCUSATE SODIUM 100MG CAPSULE PO PRN (20:31)
[2020-07-18] MEDS: IBUPROFEN 800 MG TAB PO PRN ×2 (04:53→17:42)
[2020-07-18 05:53] VITALS: BP 117/57
[2020-07-18] MEDS: PRENATAL VITAMINS CHEWABLE TABLET PO SCH (08:28)
[2020-07-18] MEDS: ACETAMINOPHEN 500 MG TAB PO PRN ×2 (10:50→21:10)
[2020-07-18 17:38] VITALS: BP 117/66
[2020-07-19] MEDS: IBUPROFEN 800 MG TAB PO PRN ×2 (00:50→11:50)
[2020-07-19 05:14] VITALS: BP 129/70
[2020-07-19] MEDS: PRENATAL VITAMINS CHEWABLE TABLET PO SCH (07:48)
[2020-07-19] MEDS ORDERED: BOOSTRIX/ADACEL VACCINE (DIPHTH/PERTUSS/ACELL/TETANUS) 0.5ML SYR IM ONE (09:00)
[2020-07-19] MEDS: DIBUCAINE 1% OINTMENT 30GM TOP PRN (09:27)
[2020-07-19] MEDS: DOCUSATE SODIUM 100MG CAPSULE PO PRN (09:27)
[2020-07-19] MEDS: ACETAMINOPHEN 500 MG TAB PO PRN (09:27)
== END 2020-07-19 14:50 | disposition home or self-care (01) | DRG 807 ==
LOC: M LDO 02:20 → M LDI 03:04 → M OBS 20:27
PROVIDERS: ADMIT Advanced Practice Midwife; ATTEND Advanced Practice Midwife
PROC: 10E0XZZ Delivery of Products of Conception, External Approach (ICD-10-PCS; principal; 2020-07-17)
PROC: 0KQM0ZZ Repair Perineum Muscle, Open Approach (ICD-10-PCS; 2020-07-17)
PROC: 10907ZC Drainage of Amniotic Fluid, Therapeutic from Products of Conception, Via Natural or Artificial Opening (ICD-10-PCS; 2020-07-17)
DX: O48.0 Post-term pregnancy (principal); Z37.0 Single live birth; Z3A.40 40 weeks gestation of pregnancy; O34.219 Maternal care for unspecified type scar from previous cesarean delivery; O63.1 Prolonged second stage (of labor); O77.0 Labor and delivery complicated by meconium in amniotic fluid; O70.1 Second degree perineal laceration during delivery; Z88.2 Allergy status to sulfonamides

== ENCOUNTER → 2020-07-25 | Outpatient (REF) | payer OTHER ==
[~2020-07-25] MED LIST changes: +ACET325C5 PO; +CALC500C15 PO
== END ==
LOC: M SFHCWAGY 12:40
PROVIDERS: ATTEND Advanced Practice Midwife
DX: R35.0 Frequency of micturition (principal)

== ENCOUNTER → 2021-09-01 | Outpatient (REF) | payer OTHER | LOC: M PLALAB 08:09 | PROVIDERS: ATTEND Advanced Practice Midwife | DX: Z12.4 Encounter for screening for malignant neoplasm of cervix (principal) | CPT/HCPCS: 87624; G0123 ==

== ENCOUNTER → 2022-11-05 | Outpatient (REF) | payer OTHER | LOC: M SFHCWAGY 13:05 | PROVIDERS: ATTEND Advanced Practice Midwife | DX: Z12.4 Encounter for screening for malignant neoplasm of cervix (principal) | CPT/HCPCS: 87624; G0123 ==

== ENCOUNTER → 2023-09-05 | Outpatient (REF) | payer OTHER ==
[2023-09-05 17:40] LABS: THYROID STIMULATING HORMONE 1.661 uIU/ML (0.55-4.78)
[2023-09-05 17:41] LABS: ALBUMIN 3.5 G/DL (3.2-5.2); ALKALINE PHOSPHATASE 37 U/L (46-116); ALT/SGPT 24 U/L (7.0-40); AST/SGOT 9 U/L (<34); BILIRUBIN,TOTAL 0.4 MG/DL (0.3-1.2); BLOOD UREA NITROGEN 12 MG/DL (9-23); CARBON DIOXIDE LEVEL 27 MMOL/L (20-31); CHLORIDE LEVEL 108 MMOL/L (98-107); CREATININE FOR GFR 0.62 MG/DL (0.55-1.30); GLOMERULAR FILTRATION RATE > 60.0 (>60); GLUCOSE, FASTING 87 MG/DL (60-100); POTASSIUM SERUM 3.9 MMOL/L (3.5-5.1); SODIUM LEVEL 140 MMOL/L (136-145); TOTAL PROTEIN 6.4 G/DL (5.7-8.2)
[2023-09-05 17:43] LABS: FREE T4 1.14 NG/DL (0.89-1.76)
[2023-09-05 17:57] LABS: BASO % 0.5 % (0.0-1.0); EOS # 0.2 10^3/uL (0.0-0.5); EOS % 2.5 % (0.0-3.0); HEMATOCRIT 41.7 % (36.0-47.0); HEMOGLOBIN 13.8 g/dl (12.0-15.5); LYMPH # 2.3 10^3/uL (1.5-5.0); LYMPH % 38.1 % (24.0-44.0); MEAN CORPUSCULAR HEMOGLOBIN 29.6 pg (27.0-33.0); MEAN CORPUSCULAR HGB CONC 33.1 g/dl (32.0-36.5); MEAN CORPUSCULAR VOLUME 89.3 fl (80.0-96.0); MONO # 0.5 10^3/uL (0.0-0.8); MONO % 7.9 % (2.0-8.0); NEUTROPHILS % 50.8 % (36.0-66.0); PLATELET COUNT, AUTOMATED 294 10^3/uL (150-450); RED BLOOD COUNT 4.67 10^6/uL (4.00-5.40); WHITE BLOOD COUNT 5.9 10^3/uL (4.0-10.0)
== END ==
LOC: M SFHCLERA 09:27
PROVIDERS: ATTEND Family Medicine
DX: R03.0 Elevated blood-pressure reading, without diagnosis of hypertension (principal); L65.9 Nonscarring hair loss, unspecified

== ENCOUNTER → 2023-12-16 | Outpatient (REF) | payer OTHER ==
[2023-12-20 15:07] LABS: HPV APTIMA Detected (Not Detected)
== END ==
LOC: M SFHCWAGY 17:08
PROVIDERS: ATTEND Advanced Practice Midwife
DX: Z12.4 Encounter for screening for malignant neoplasm of cervix (principal)
CPT/HCPCS: 87624; G0123

== ENCOUNTER → 2024-10-05 | Outpatient (CLI) | payer OTHER ==
[~2024-10-05] MED LIST changes: -FLOM0.4C39 PO; +TAMS-18 PO
== END ==
LOC: M WUC 09:15
PROVIDERS: ATTEND Physician Assistant
DX: S90.121A Contusion of right lesser toe(s) without damage to nail, initial encounter (principal); X58.XXXA Exposure to other specified factors, initial encounter; Y92.9 Unspecified place or not applicable; Y93.9 Activity, unspecified; Y99.9 Unspecified external cause status

== ENCOUNTER → 2025-01-09 | Outpatient (REF) | payer OTHER ==
[~2025-01-09] MED LIST changes: -IBUP-1022 PO; +IBUP600T42 PO
[2025-01-12 14:12] LABS: HPV APTIMA Not Detected (Not Detected)
== END ==
LOC: M PLALAB 16:32
PROVIDERS: ATTEND Student in an Organized Health Care Education/Training Program
DX: Z12.4 Encounter for screening for malignant neoplasm of cervix (principal)
CPT/HCPCS: 87624; G0123

== ENCOUNTER → 2025-01-21 | Outpatient (REF) | payer OTHER ==
[2025-01-21 18:18] LABS: BASO # 0.0 10^3/uL (0.0-0.2); BASO % 0.4 % (0.0-1.0); EOS # 0.1 10^3/uL (0.0-0.5); EOS % 0.8 % (0.0-3.0); LYMPH # 2.4 10^3/uL (1.5-5.0); LYMPH % 23.1 % (24.0-44.0); MONO # 0.6 10^3/uL (0.0-0.8); MONO % 5.7 % (2.0-8.0); NEUTROPHILS # 7.2 10^3/uL (1.5-8.5); NEUTROPHILS % 69.8 % (36.0-66.0); PLATELET COUNT, AUTOMATED 303 10^3/uL (150-450)
[2025-01-21 18:46] LABS: ALT/SGPT 18 U/L (7.0-40); AST/SGOT 18 U/L (<34); CALCIUM LEVEL 9.3 MG/DL (8.5-10.1); CARBON DIOXIDE LEVEL 24 MMOL/L (20-31); CHLORIDE LEVEL 104 MMOL/L (98-107); CHOLESTEROL LEVEL 177 MG/DL (<200); CHOLESTEROL RISK RATIO 3.07 (<5); CREATININE FOR GFR 0.65 MG/DL (0.55-1.30); GLOMERULAR FILTRATION RATE > 90.0 (>60); LDL CHOLESTEROL 101.1 MG/DL (<100); NON-HDL-C 119.5 MG/DL; POTASSIUM SERUM 3.8 MMOL/L (3.5-5.1); SODIUM LEVEL 139 MMOL/L (136-145); TRIGLYCERIDES LEVEL 92 MG/DL (<150)
== END ==
LOC: M SFHCLERA 09:33
PROVIDERS: ATTEND Family Medicine
DX: Z00.00 Encounter for general adult medical examination without abnormal findings (principal)